=== PATIENT | female | born 1970 | race Caucasian/White ===

== ENCOUNTER 2017-12-29 17:30 | Emergency (ER) | payer MEDICARE ==
[~2017-12-29] VITALS: Ht 175.3 cm; Wt 63.0 kg
[~2017-12-29 17:30] MED LIST: LORA2 PO; Norco 5-325 Ta1 EACH PO; SUBUTEX
== END 2017-12-29 19:37 | disposition home or self-care (01) ==
LOC: ER 17:30
DX: G89.29 Other chronic pain (principal); M54.5 Low back pain; Z87.891 Personal history of nicotine dependence
CPT/HCPCS: 96372; 99283; J1885

== ENCOUNTER → 2025-07-15 | Outpatient (CLI) | payer MEDICARE, OTHER | LOC: LAB 10:13 → LAB SHORT 10:13 | PROVIDERS: Advanced Practice Midwife | DX: Z01.419 Encounter for gynecological examination (general) (routine) without abnormal findings (principal) | CPT/HCPCS: 87624; G0145 ==